=== PATIENT | female | born 1985 | race Asian ===

== ENCOUNTER 2017-02-27 06:30 | Emergency (ER) | payer MEDICAID ==
[~2017-02-27] VITALS: Ht 157.5 cm; Wt 78.0 kg
[~2017-02-27 06:30] MED LIST: ACET500C5 PO; CEPH-443 PO; IBUP-1542 PO; MECL25TA2 PO; ZOF8 PO
[2017-02-27 06:38] VITALS: Ht 157.5 cm; Wt 78.0 kg
[2017-02-27] MEDS ORDERED: FAMOTIDINE 20 MG TAB PO ONE (07:00)
[2017-02-27] MEDS ORDERED: DIPHENHYDRAMINE 25 MG CAP PO ONE (07:00)
[2017-02-27] MEDS ORDERED: DEXAMETHASONE 10 MG/ML 1 ML INJ IM ONE (07:00)
--- NOTE | 2017-02-27 07:10 | ERD ---
ER Documentation Chief Complaint Chief Complaint Rash, itching since last night HPI The patient is a 31-year-old female who presents to the Emergency Department with complaint of a pruritic rash since last night. The patient reports that late last night she developed a mildly erythema, itchy rash to her body. The rash is mostly present throughout the trunk and extremities, but has been changing in location and morphology since onset. Additionally, after initial onset of the body itching, she also noted some itching to her throat, which has since resolved. The patient denies any history of similar symptoms in the past. Denies lip or tongue swelling, throat tightness, shortness of breath, wheezing, stridor, difficulty tolerating her oral secretions. She denies exposure to new foods, drinks, detergents, lotions, shampoos, soaps, plants, insects, animals. Denies any other complaints at this time. Of note, none of the patient's household members has similar symptoms. ROS All systems reviewed and are negative except as per history of present illness. Medications Home Meds Active Scripts Famotidine* (Pepcid*) 20 Mg Tablet, 20 MG PO BID for 4 Days, TAB Prov:ELDON MORGAN PA-C 02/27/17 Diphenhydramine Hcl* (Benadryl*) 25 Mg Cap, 25 MG PO Q6, #30 CAP Prov:ELDON MORGAN PA-C 02/27/17 Prednisone* (Prednisone*) 20 Mg Tab, 40 MG PO DAILY for 4 Days, TAB Prov:ELDON MORGAN PA-C 02/27/17 Acetaminophen* (Tylophen*) 500 Mg Capsule, 1 CAP PO Q6H Y for PAIN AND OR ELEVATED TEMP, #20 CAP Prov:ELAINA MARTINS NP 09/29/15 Ibuprofen* (Motrin*) 600 Mg Tab, 600 MG PO Q6, #15 TAB Prov:EMMY MARIE MD 09/29/15 Cephalexin* (Keflex*) 500 Mg Capsule, 500 MG PO QID for 5 Days, CAP Prov:EMMY MARIE MD 02/15/15 Ondansetron Hcl* (Zofran* ODT) 8 mg -ODT Tab.disper, 8 MG PO Q6 Y for NAUSEA AND /OR VOMITING, #8 TAB Prov:EMMY MARIE MD 02/15/15 Meclizine Hcl* (Antivert*) 25 Mg Tablet, 25 MG PO Q6H Y for dizziness, #14 TAB Prov:EMMY MARIE MD 02/15/15 Allergies Allergies: Coded Allergies: No Known Allergy (Unverified , 02/27/17) PMhx/Soc History of Surgery: Yes (APPENDECTOMY, ) Anesthesia Reaction: No Hx Neurological Disorder: No Hx Respiratory Disorders: No Hx Cardiac Disorders: No Hx Psychiatric Problems: No Hx Miscellaneous Medical Probl: No Hx Alcohol Use: No Hx Substance Use: No Hx Tobacco Use: No Smoking Status: Never smoker Physical Exam Vitals Vital Signs Date Time Temp Pulse Resp B/P Pulse Ox O2 Delivery O2 Flow Rate FiO2 02/27/17 06:38 98.1 89 18 130/89 99 Physical Exam GENERAL: Well-developed, well-nourished, female, in no acute distress. HEENT: Head is normocephalic, atraumatic. No scleral pallor or icterus. Pupils equal, round and reactive to light. Extraocular movements intact. Conjunctiva pink. Nares are patent bilaterally. Bilaterally tympanic membranes are clear with no evidence of erythema, effusion or dulling of the light reflex. Moist mucous membranes. No lip or tongue swelling. Clear oropharynx. No tonsillar exudates or erythema of the oropharynx. No trismus. No stridor. No excessive drooling. Phonation is normal. No submandibular swelling. NECK: Supple. Full range of motion. RESPIRATORY: Lungs are clear to auscultation bilaterally. No rales, rhonchi or wheezing. Equal breath sounds. Normal expiratory effort. CARDIOVASCULAR: Regular rate and rhythm. S1 and S2 normal. Distal pulses are palpable, 2+ bilaterally. Capillary refill is less than 2 seconds. GASTROINTESTINAL: Abdomen is soft, non-tender, and non-distended. FLANK: No CVA tenderness. BACK: No midline tenderness. EXTREMITIES: No clubbing, cyanosis, or edema. Normal skin perfusion. Moving all extremities. Muscle tone is normal. No focal swelling or erythema. NEUROLOGIC: The patient is alert, awake, and oriented x 3. No focal neurologic deficits. INTEGUMENT: Skin is intact. Warm and dry. Urticarial rash to trunk, neck, extremities. No slip or target lesions. No crepitus. No skin sloughing. No bruising. No central clearing. No vesicles, bullae, ulcerations. No petechiae or purpura. PSYCHIATRIC: Cooperative; appropriate. Results 24 hrs Current Medications Medications (Trade) Dose Ordered Sig/Shelli Route PRN Reason Start Time Stop Time Status Last Admin Dose Admin Dexamethasone (Decadron) 10 mg ONCE ONCE IM 02/27/17 07:00 02/27/17 07:01 DC 02/27/17 07:06 Diphenhydramine HCl (Benadryl) 25 mg ONCE ONCE PO 02/27/17 07:00 02/27/17 07:01 DC 02/27/17 07:06 Famotidine (Pepcid) 20 mg ONCE ONCE PO 02/27/17 07:00 02/27/17 07:01 DC 02/27/17 07:06 Procedures/[facility] This is a 31-year-old female patient presenting to the emergency department with complaint of a new pruritic skin rash. The patient had notable raised, regions of urticaria on her trunk, neck, and extremities on physical examination. However, the patient's oropharynx and airway were patent, and exhibited no breathing difficulties, wheezing, tongue swelling or lip swelling. No evidence of angioedema, airway compromise, inability to handle oral secretions or stridor. Patient's phonation was normal. No wheezing auscultated on physical examination. Circulation was appropriate, with no systemic signs of anaphylaxis, no hypotension. No associated purpura or petechiae. The differential diagnosis includes, but is not limited to, allergic reaction, insect bite, fungal infection, cellulitis, MRSA, impetigo, shingles, herpes simplex virus, burn, abscess, dermatitis, viral syndrome, candidiasis, medication reaction, العلي Lalo syndrome, epidermolysis bullosa, toxic epidermal necrolysis, meningococcemia, toxic shock syndrome, hand foot and mouth disease, mononucleosis, heat rash. No evidence of crepitus, skip lesions or pain away from site of rash, concerning for necrotizing fasciitis or myositis. No mucosal involvement or appearance concerning for Neo Lalo's syndrome or TENS. No airway compromise or concern for anaphylaxis. No indication of angioedema. After rest and administration of Decadron, Benadryl and Pepcid, the patient has no new complaints, and the patient remains stable with appropriate vital signs and no signs of respiratory distress. Her itching has resolved and her urticaria have largely resolved as well. Upon my review and interpretation of the patient's presentation and overall ER course, I believe the patient's symptoms are most consistent with urticaria. Suspect possible allergic reaction, though allergen unknown. At this time, the patient is in stable condition and therefore can be discharged home with prescriptions for Prednisone, Pepcid and Benadryl (recommended by ED supervising physician, Dr. Boudreaux), and strict return precautions for signs of deteriorating or worsening condition. She is advised to follow up with her primary care provider within 1-2 days for reevaluation and further management, or return to the ER sooner for worsening symptoms. I shared my medical decision making and plan with the patient at length and in great detail, and she verbally understands and agrees with the plan for further observation and care as an outpatient. At the time of discharge all questions were answered. Departure Diagnosis: Primary Impression: Urticaria Condition: Stable Patient Instructions: Allergic Reaction, Other (General), Hives Additional Instructions: Call your primary care doctor TOMORROW for an appointment during the next 1-2 days.See the doctor sooner or return here if your condition worsens before your appointment time. ELDON MORGAN PA-C Feb 27, 2017 07:09
[2017-02-27] MEDS ORDERED: BEN25 PO (08:17)
[2017-02-27] MEDS ORDERED: FAMO-96 PO (08:17)
[2017-02-27] MEDS ORDERED: PRED20TA PO (08:17)
== END 2017-02-27 08:21 | disposition home or self-care (01) ==
LOC: FTE 06:30
DX: L50.9 Urticaria, unspecified (principal)
CPT/HCPCS: 96372; J1100; Z7502; Z7610

== ENCOUNTER → 2017-12-11 | Outpatient (CLI) | END | disposition home or self-care (01) ==

== ENCOUNTER 2018-10-06 14:56 | Emergency (ER) | payer BC ==
[~2018-10-06] VITALS: Ht 157.5 cm; Wt 64.0 kg
[~2018-10-06 14:56] MED LIST changes: +BEN25 PO; +FAMO-96 PO; +PRED20TA PO
[2018-10-06 15:04] VITALS: Ht 157.5 cm; Wt 64.0 kg
--- NOTE | 2018-10-06 15:17 | ERD ---
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 She is a nurse. She had similar symptoms previously, she vomited twice a mostly mucus prior to arrival. She recently had similar symptoms about 2 weeks ago due to her migraine, the headache is similar to previous migraine, denies photophobia\photophobia, facial pain, neck pain, ch est pain, dyspnea, abdominal pain, fever, diarrhea. She does not smoke nor drink, has a lot of stress has been working a lot lately. She had an brain MRI about a year ago that was unremarkable Past medical history: Migraine Past surgical history: Appendectomy, ROS All systems reviewed and are negative except as per history of present illness. Medications Home Meds Active Scripts Ibuprofen* (Motrin*) 600 Mg Tab, 600 MG PO Q6H PRN for PAIN, #20 TAB Prov:BELKYS ARORA MD 10/06/18 Cephalexin* (Keflex*) 500 Mg Capsule, 500 MG PO QID for 7 Days, CAP Prov:BELKYS ARORA MD 10/06/18 Reported Medications Aspirin/Acetaminophen/Caffeine (Excedrin Migraine Caplet) 1 Each Tablet, 1 TAB PO BID PRN for MIGRAINE, TAB 10/06/18 Discontinued Scripts Famotidine* (Pepcid*) 20 Mg Tablet, 20 MG PO BID for 4 Days, TAB Prov:ELDON MORGANC 02/27/17 Diphenhydramine Hcl* (Benadryl*) 25 Mg Cap, 25 MG PO Q6, #30 CAP Prov:ELDON MORGANC 02/27/17 Prednisone* (Prednisone*) 20 Mg Tab, 40 MG PO DAILY for 4 Days, TAB Prov:ELDON MORGANC 02/27/17 Acetaminophen* (Tylophen*) 500 Mg Capsule, 1 CAP PO Q6H PRN for PAIN AND OR ELEVATED TEMP, #20 CAP Prov:ELAINA MARTINS NP 09/29/15 Ibuprofen* (Motrin*) 600 Mg Tab, 600 MG PO Q6, #15 TAB Prov:EMMY MARIE MD 09/29/15 Cephalexin* (Keflex*) 500 Mg Capsule, 500 MG PO QID for 5 Days, CAP Prov:MEMY MARIE MD 02/15/15 Ondansetron Hcl* (Zofran* ODT) 8 mg -ODT Tab.disper, 8 MG PO Q6 PRN for NAUSEA AND/OR VOMITING, #8 TAB Prov:EMMY MARIE MD 02/15/15 Meclizine Hcl* (Antivert*) 25 Mg Tablet, 25 MG PO Q6H PRN for dizziness, #14 TAB Prov:EMMY MARIE MD 02/15/15 Allergies Allergies: Coded Allergies: No Known Allergy (Unverified , 10/06/18) PMhx/Soc History of Surgery: Yes (APPENDECTOMY, ) Anesthesia Reaction: No Hx Neurological Disorder: No Hx Respiratory Disorders: No Hx Cardiac Disorders: No Hx Psychiatric Problems: No Hx Miscellaneous Medical Probl: No Hx Alcohol Use: No Hx Substance Use: No Hx Tobacco Use: No Physical Exam Vitals Vital Signs Date Temp Pulse Resp B/P (MAP) Pulse Ox O2 O2 Flow FiO2 Time Delivery Rate 10/06/18 97.6 71 18 133/93 99 Room Air 18:10 (106) 10/06/18 76 18 148/93 99 Room Air 16:59 (111) 10/06/18 66 18 140/95 99 Room Air 15:46 (110) 10/06/18 97.0 77 18 158/99 100 15:04 (118) Physical Exam Const: No acute distress. Head: Atraumatic. Eyes: Normal Conjunctiva. ENT: Normal External Ears, Nose and Mouth. Bilateral tympanic membrane s are within normal limit Neck: Full range of motion. No meningismus. Resp: Clear to auscultation bilaterally. Cardio: Regular rate and rhythm. Abd: Soft, non distended, normal bowel sounds, non tender. Skin: No petechiae or rashes. Back: No midline or flank tenderness. Ext: No cyanosis, or edema. Neur: Awake and alert. No focal deficit Psych: Normal Mood and Affect. Result Diagram: 10/06/18 1628 10/06/18 1629 Results 24 hrs Laboratory Tests Test 10/06/18 15:26 10/06/18 15:28 10/06/18 16:28 10/06/18 16:29 Bedside Urine pH 5.5 (LAB) Bedside Urine Negative Protein (LAB) Bedside Urine Negative Glucose (UA) Bedside Urine Negative Ketones (LAB) Bedside Urine Blood Negative Bedside Urine Negative Nitrite (LAB) Bedside Urine 1+ Leukocyte Esterase (L POC Beta HCG, NEGATIVE Qualitative White Blood Count 7.7 10^3/ul Red Blood Count 4.59 10^6/ul Hemoglobin 12.7 g/dl Hematocrit 39.8 % Mean Corpuscular 86.7 fl Volume Mean Corpuscular 27.7 pg Hemoglobin Mean Corpuscular 31.9 g/dl Hemoglobin Concent Red Cell 12.0 % Distribution Width Platelet Count 241 10^3/UL Mean Platelet 9.7 fl Volume Immature 0.100 % Granulocytes % Neutrophils % 50.8 % Lymphocytes % 38.3 % Monocytes % 4.8 % Eosinophils % 5.6 % Basophils % 0.4 % Nucleated Red Blood 0.0 /100WBC Cells % Immature 0.010 10^3/ul Granulocytes # Neutrophils # 3.9 10^3/ul Lymphocytes # 3.0 10^3/ul Monocytes # 0.4 10^3/ul Eosinophils # 0.4 10^3/ul Basophils # 0.0 10^3/ul Nucleated Red Blood 0.0 10^3/ul Cells # Prothrombin Time 11.7 Sec Prothrombin Time 0.9 Ratio INR International 0.85 Normalized Ratio Activated 32.6 Sec Partial Thromboplas t Time Sodium Level 141 mmol/L Potassium Level 4.1 mmol/L Chloride Level 105 mmol/L Carbon Dioxide 27 mmol/L Level Anion Gap 9 Blood Urea Nitrogen 10 mg/dl Creatinine 0.65 mg/dl Est Glomerular > 60 mL/min Filtrat Rate mL/min Glucose Level 98 mg/dl Calcium Level 9.3 mg/dl Current Medications Medications Dose Sig/Shelli Start Time Status Last (Trade) Ordered Route PRN Stop Time Admin Dose Reason Admin 1 tab ONCE ONCE 10/06/18 DC 10/06/18 Acetaminophen PO 16:00 15:43 / 10/06/18 16:01 Hydrocodone Bitart (Riesel (5/325)) Ondansetron 4 mg ONCE STAT 10/06/18 DC 10/06/18 HCl (Zofran ODT 15:39 15:43 Odt) 10/06/18 15:40 Morphine 2 mg ONCE STAT 10/06/18 DC 10/06/18 Sulfate IV 16:19 16:23 (morphine) 10/06/18 16:20 Ondansetron 4 mg ONCE STAT 10/06/18 DC 10/06/18 HCl (Zofran IV 16:19 16:23 Inj) 10/06/18 16:20 Ketorolac 30 mg ONCE STAT 10/06/18 DC 10/06/18 Tromethamine IV 17:36 17:38 (Toradol) 10/06/18 17:37 Procedures/[place] [address] Radiology Main Line: [phone] DIAGNOSTIC IMAGING REPORT Patient: ANIVAL BIRMINGHAM : 1985 Age: 33 Sex: F MR #: [id number] DOS: 10/06/18 1539 Ordering MD: BELKYS ARORA MD Location: E/R Room/Bed: PROCEDURE: CT Brain without contrast. CLINICAL INDICATION: Headache. TECHNIQUE: A CT of the brain without contrast was performed utilizing axial sections from the skull base through the vertex. One or more the following does reduction techniques were utilized: Automated exposure control, adjustment of the mA/ or kV according to patient's size, or use of iterative reconstruction technique. Total exam CTDIvol is 39.34 MGy and DLP is 634 mGy-cm. DICOM images are available. COMPARISON: CT orbit 09/29/2015. FINDINGS: The ventricles and sulci are age-appropriate. There is no intracranial hemorrhage, mass effect or midline shift. No abnormal intra-axial or extra- axial fluid collections are seen. The sheffield/white matter differentiation is preserved. Old focal fracture of the left lamina papyracea is noted. No acute skull abnormality is noted. The visualized paranasal sinuses demonstrate mild to moderate fluid levels in bilateral maxillary sinuses, right greater than left as well as mild scattered mucosal thickening more pronounced in ethmoid air cells. The mastoid air cells are essentially clear. IMPRESSION: 1. No acute intracranial hemorrhage, transcortical infarction or mass effect. 2. Old focal fracture of the left lamina papyracea. 3. Mild to moderate paranasal sinus disease with fluid levels in bilateral maxillary sinuses, correlate for acute sinusitis. RPTAT: HH .Clement Menchaca MD, Date Time Electronically viewed and signed by .Clement Menchaca MD, on 10/06/2018 16:59 .N/ CC: BELKYS ARORA MD [id number] MEDICAL MAKING DECISION: The patient is a 33-year-old female, presenting with acute migraine exacerbation, acute sinusitis, acute headache, acute cystitis She was treated with Riesel 5 mg p.o. morphine 2 mg IV for pain and Zofran ODT and Zofran IV for nausea with good response, is stable for o/p follow-up The differential diagnoses considered include but are not limited to subarach noid hemorrhage, occult trauma, CVA, meningitis, encephalitis, hypertension, tension, migraine, cluster, narcotic withdrawal, cervical spine disease. Departure Diagnosis: Primary Impression: Migraine Additional Impressions: Sinus headache Sinusitis UTI (urinary tract infection) Condition: Good Comments She was discharged with Keflex and Motrin The patient's blood pressure was elevated (>120/80) but appears stable without evidence of hypertension emergency or urgency. The patient was counseled about the risks of hypertension and urged to pursue outpatient monitoring and therapy within a week with their primary care physician. I discussed the findings with the patient. I advised the patient to follow-up with the primary physician in about 1-2 days, sooner if needed and return if any concern. Disclaimer: Inadvertent spelling and grammatical errors are likely due to EHR/dictation software use and do not reflect on the overall quality of patient care. Also, please note that the electronic time recorded on this note does not necessarily reflect the actual time of the patient encounter. BELKYS ARORA MD Oct 06, 2018 15:17
[2018-10-06] MEDS ORDERED: ONDANSETRON (ODT) 4 MG TAB ODT STA (15:39)
[2018-10-06] MEDS ORDERED: HYDROCODONE/APAP (5/325) TAB PO ONE (16:00)
[2018-10-06] MEDS ORDERED: morphine 2 MG INJ IV STA (16:19)
[2018-10-06] MEDS ORDERED: ONDANSETRON 4 MG INJ IV STA (16:19)
[2018-10-06] MEDS ORDERED: ASPI1TAB31 PO (16:46)
[2018-10-06] MEDS ORDERED: IBUP-1542 PO (17:26)
[2018-10-06] MEDS ORDERED: CEPH-443 PO (17:26)
[2018-10-06] MEDS ORDERED: KETOROLAC 30 MG INJ IV STA (17:36)
[2018-10-06 18:10] VITALS: BP 133/93; PULSE 71; RESP 18
== END 2018-10-06 18:11 | disposition home or self-care (01) ==
LOC: E/R 14:56
DX: G43.909 Migraine, unspecified, not intractable, without status migrainosus (principal); J32.9 Chronic sinusitis, unspecified; N39.0 Urinary tract infection, site not specified; R40.2142 Coma scale, eyes open, spontaneous, at arrival to emergency department; R40.2362 Coma scale, best motor response, obeys commands, at arrival to emergency department; R40.2252 Coma scale, best verbal response, oriented, at arrival to emergency department; Z79.82 Long term (current) use of aspirin
CPT/HCPCS: 36415; 70450; 80048; 81003; 81025; 85025; 85610; 85730; 96374; 96375; 99285; J1885; J2270; J2405

== ENCOUNTER → 2018-10-09 | Outpatient (CLI) | payer BC ==
[~2018-10-09] MED LIST changes: -ACET500C5 PO; +ASPI1TAB31 PO; -BEN25 PO; -FAMO-96 PO; -MECL25TA2 PO; -PRED20TA PO; -ZOF8 PO
== END | disposition home or self-care (01) ==
LOC: LAB 10:13
PROVIDERS: ATTEND Internal Medicine
DX: R73.03 Prediabetes (principal); E78.5 Hyperlipidemia, unspecified
CPT/HCPCS: 80061; 83036; 85025; 85651